=== PATIENT | female | born 1975 | race Caucasian/White ===

== ENCOUNTER 2016-09-09 08:45 | Emergency (ER) | payer OTHER ==
--- NOTE | 2016-09-09 10:13 | ED CLINICAL REPORT ---
Clinical Report - Physicians/Mid Levels [facility] [address] [place] [address] 09/09/2016 8:46 Patient: NGUYEN BOOGIE Time Seen: 09:59 Apr 2016. Arrived- By private vehicle. Historian- patient. CPT: ER phys charges level 3 (#[id number]). HISTORY OF PRESENT ILLNESS Chief Complaint: SKIN RASH. This started today Did own tattoo last night and now reacting. and is still present. It is described as itchy and burning. It has been located on the left forearm. A cause has been identified. (tattoo ink). Similar symptoms previously: None. Recent medical care: Not recently seen/assessed. REVIEW OF SYSTEMS No fever, chills, sore throat, cough or difficulty breathing. No hoarseness, lump in throat, enlarged lymph nodes, chest pain or abdominal pain. No nausea, diarrhea, joint pain or vomiting. All systems otherwise negative, except as recorded above. PAST HISTORY Atypical Chest Pain. Sprain. Dental Pain. Immunizations. Cervical stenosis. Anxiety Reaction. - ADDITIONAL SURGERIES: . Tonsillectomy. Tubal Ligation. Medications: ALPRAZolam Oral 0.25 mg, as needed. Baclofen. Ibuprofen Oral. Allergies: Ceclor. SOCIAL HISTORY Light tobacco smoker (cigarette)- less than 1/2 a pack per day. No alcohol use or drug use. ADDITIONAL NOTES The nursing notes have been reviewed. PHYSICAL EXAM Vital Signs: 09/09/2016 09:02 BP: 112/92. HR: 94. RR: 20. O2 saturation: 100%. Temp: 99 F. Pain level now: 8/10. Appearance: Alert. No acute distress. Anxious. Eyes: Pupils equal, round and reactive to light. Conjunctivae and eyelids normal. ENT: Ears normal. Nose normal. Pharynx normal. Neck: Neck supple. CVS: Normal heart rate and rhythm. Heart sounds normal. Respiratory: No respiratory distress. Breath sounds normal. Chest nontender. No wheezes. Skin: Skin warm. (erythema under tattos on left forearm and right arm consistent with allergic reaction to the ink.). Extremities: Extremities nontender. Neuro: Oriented X 3. No motor deficit. No sensory deficit. PROGRESS AND PROCEDURES Course of Care: Prednisone 40 mg po pepcic 40 mg po. Patient/family counseled. Disposition: Discharged. Condition: stable. CLINICAL IMPRESSION Allergic reaction to tattoo ink left forearm and right upper arm. INSTRUCTIONS Warnings: Further evaluation is necessary. GENERAL WARNINGS: Return or contact your physician immediately if your condition worsens or changes unexpectedly, if not improving as expected, or if other problems arise. Prescription Medications: Hydrocortisone 2.5% ointment: apply to affected areas four times daily as needed for rash, until symptoms improve. Dispense thirty (30) grams. No refills. Prednisone 20 mg: take 3 orally every day for 5 days. Dispense fifteen (15). No refills. OTC Medications: Benadryl Allergy 25 mg (available over the counter): take 1 orally every 6 hours as needed for itching or allergies. Dispense twenty (20). No refill. Substitution is permissible. Famotidine 10 mg (available over the counter): take 1 orally at bedtime for 10 days. Dispense ten (10). No refills. Follow-up: Follow up with your doctor in two days if not better. Understanding of the discharge instructions verbalized by patient. (Electronically signed by Brant Mtz MD 09/12/2016 20:46)
--- NOTE | 2016-09-09 10:13 | ED NURSING NOTES ---
Clinical Report - Nurses [facility] [place] [address] 09/09/2016 8:46 Patient: NGUYEN BOOGIE TRIAGE Triage time 09:00. Acuity: LEVEL 3. Chief Complaint: POSSIBLE ALLERGIC REACTION and SWELLING . Pt did self tatoos last night. Today she has redness, swelling, bruising at the sites on both arms. C/o burning pain in the reaction areas. 09:06 09/09/16. KUSH COMA SCORE: Kush Coma Scale: 15- eyes open spontaneously (4); best verbal response- oriented x 4 (5); best motor response- obeys commands (6). --09: Harry Will R.N. 09:02 09/09/16. BP: 112/92. HR: 94. RR: 20. O2 saturation: 100% on room air. Temp: 99 F (oral). Pain level now: 810. Additional comments: by pulse ox. --09:07 Harry Will R.N. Weight: 49.4 kg stated. Height/Length: 61 inches Per Patient. BMI: 20.6. --09:04 Harry Will R.N. Medications ALPRAZolam Oral 0.25 mg, as needed. Baclofen. Ibuprofen Oral. --09:04 Harry Will R.N. Allergies Ceclor. --09:04 Harry Will R.N. History Arrived by private vehicle. Historian: patient. Accompanied by family. This started today. SOCIAL HX: Light tobacco smoker (cigarette)- less than 1/2 a pack per day. No alcohol use or drug use. ABUSE ASSESSMENT: No report of abuse. --09:07 Harry Will R.N. PROBLEMS: Atypical Chest Pain. Sprain. Dental Pain. Immunizations. Cervical stenosis. Anxiety Reaction. --09:04 Harry Will R.N. ADDITIONAL SURGERIES: . Tonsillectomy. Tubal Ligation. --09:04 Harry Will R.N. Interventions ID band on patient. To treatment room. --09:07 Harry Will R.N. PHYSICAL ASSESSMENT 09:09 09/09/16. Ambulatory to room. GENERAL / NEURO / PSYCH: Alert. Appears in pain. Oriented X 4. HEENT: Pupils equal, round and reactive to light. Mucous membranes are pink. RESPIRATORY: Respirations not labored. Breath sounds within normal limits. CVS: Capillary refill less than 2 seconds. Pulses within normal limits. GI / : Abdomen nontender. SKIN: Skin is intact, warm and dry. Skin rash present. Swelling present. Erythema present. ( burning pain at the tattoo sites). --09:13 Harry Will R.N. NURSING PROGRESS NOTES 09:13 09/09/16. Pulse oximeter placed on patient. Head of bed elevated. Reassurance given. Two patient identifiers checked. Call light placed in reach. Bed placed in lowest position. Brakes of bed on. Patient ready for evaluation- chart flagged. --09:13 Harry Will R.N. 10:22 09/09/2016 Prednisone PO 60 mg given. Allergies verified and confirmed 5 rights. --10:22 Taylor Vargas R.N. 10:22 09/09/2016 Famotidine PO 40 mg given. Allergies verified and confirmed 5 rights. --10:22 Taylor Vargas R.N. DISPOSITION / DISCHARGE Departure time: 10:23. Condition at departure: unchanged and stable. No learning barriers present. Discharge instructions provided and reviewed with the patient. Patient verbalized understanding. Written instructions provided in Hungarian. The patient was discharged home and accompanied by family. She left the Emergency Department ambulatory and via private vehicle. Patient driving. --10:23 Taylor Vargas R.N. 10:22 09/09/16. BP: 109/82. HR: 83. RR: 18. O2 saturation: 100%. Pain level now 0/10. --10:23 Taylor Vargas R.N. Locked/Released at 09/09/2016 15:48 by Harry Will R.N.
--- NOTE | 2016-09-09 10:13 | ED ORDER SUMMARY ---
..... Patient: NGUYEN BOOGIE OrderSheet [facility] VisitID: [id number] [place] [address] 40y, F Registration Date/Time: 09/09/2016 ORDER SHEET Weight: 49.4 kg (stated) Allergies: Ceclor GENERAL ORDERS: MEDICATION ORDERS: Prednisone PO 60 mg (NOW) (10:12 09/09/2016 Amarjit GARCÍA) (10:22 DMaziarka R.N.) Famotidine PO 40 mg (NOW) (10:12 09/09/2016 Amarjit GARCÍA) (10:22 DMaziarka R.N.) IV FLUIDS: ORDER SHEET NOTES: [Electronically signed by Harry Will R.N. (15:48 09/09/2016)] [Electronically signed by Brant Mtz MD (20:46 09/12/2016)] [Electronically locked/signed by Harry Will R.N. (15:48 09/09/2016)]
--- NOTE | 2016-09-09 10:13 | ED CLINICAL REPORT ---
Clinical Report - Physicians/Mid Levels [facility] [address] [place] [address] 09/09/2016 8:46 Patient: NGUYEN BOOGIE Time Seen: 09:59 Apr 2016. Arrived- By private vehicle. Historian- patient. CPT: ER phys charges level 3 (#[id number]). HISTORY OF PRESENT ILLNESS Chief Complaint: SKIN RASH. This started today Did own tattoo last night and now reacting. and is still present. It is described as itchy and burning. It has been located on the left forearm. A cause has been identified. (tattoo ink). Similar symptoms previously: None. Recent medical care: Not recently seen/assessed. REVIEW OF SYSTEMS No fever, chills, sore throat, cough or difficulty breathing. No hoarseness, lump in throat, enlarged lymph nodes, chest pain or abdominal pain. No nausea, diarrhea, joint pain or vomiting. All systems otherwise negative, except as recorded above. PAST HISTORY Atypical Chest Pain. Sprain. Dental Pain. Immunizations. Cervical stenosis. Anxiety Reaction. - ADDITIONAL SURGERIES: . Tonsillectomy. Tubal Ligation. Medications: ALPRAZolam Oral 0.25 mg, as needed. Baclofen. Ibuprofen Oral. Allergies: Ceclor. SOCIAL HISTORY Light tobacco smoker (cigarette)- less than 1/2 a pack per day. No alcohol use or drug use. ADDITIONAL NOTES The nursing notes have been reviewed. PHYSICAL EXAM Vital Signs: 09/09/2016 09:02 BP: 112/92. HR: 94. RR: 20. O2 saturation: 100%. Temp: 99 F. Pain level now: 8/10. Appearance: Alert. No acute distress. Anxious. Eyes: Pupils equal, round and reactive to light. Conjunctivae and eyelids normal. ENT: Ears normal. Nose normal. Pharynx normal. Neck: Neck supple. CVS: Normal heart rate and rhythm. Heart sounds normal. Respiratory: No respiratory distress. Breath sounds normal. Chest nontender. No wheezes. Skin: Skin warm. (erythema under tattos on left forearm and right arm consistent with allergic reaction to the ink.). Extremities: Extremities nontender. Neuro: Oriented X 3. No motor deficit. No sensory deficit. PROGRESS AND PROCEDURES Course of Care: Prednisone 40 mg po pepcic 40 mg po. Patient/family counseled. Disposition: Discharged. Condition: stable. CLINICAL IMPRESSION Allergic reaction to tattoo ink left forearm and right upper arm. INSTRUCTIONS Warnings: Further evaluation is necessary. GENERAL WARNINGS: Return or contact your physician immediately if your condition worsens or changes unexpectedly, if not improving as expected, or if other problems arise. Prescription Medications: Hydrocortisone 2.5% ointment: apply to affected areas four times daily as needed for rash, until symptoms improve. Dispense thirty (30) grams. No refills. Prednisone 20 mg: take 3 orally every day for 5 days. Dispense fifteen (15). No refills. OTC Medications: Benadryl Allergy 25 mg (available over the counter): take 1 orally every 6 hours as needed for itching or allergies. Dispense twenty (20). No refill. Substitution is permissible. Famotidine 10 mg (available over the counter): take 1 orally at bedtime for 10 days. Dispense ten (10). No refills. Follow-up: Follow up with your doctor in two days if not better. Understanding of the discharge instructions verbalized by patient. (Electronically signed by Brant Mtz MD 09/12/2016 20:46)
--- NOTE | 2016-09-09 10:13 | ED ORDER SUMMARY ---
..... Patient: NGUYEN BOOGIE OrderSheet [facility] VisitID: [id number] [place] [address] 40y, F Registration Date/Time: 09/09/2016 ORDER SHEET Weight: 49.4 kg (stated) Allergies: Ceclor GENERAL ORDERS: MEDICATION ORDERS: Prednisone PO 60 mg (NOW) (10:12 09/09/2016 Amarjit GARCÍA) (10:22 DMaziarka R.N.) Famotidine PO 40 mg (NOW) (10:12 09/09/2016 Amarjit GARCÍA) (10:22 DMaziarka R.N.) IV FLUIDS: ORDER SHEET NOTES: [Electronically signed by Harry Will R.N. (15:48 09/09/2016)] [Electronically signed by Brant Mtz MD (20:46 09/12/2016)] [Electronically locked/signed by Harry Will R.N. (15:48 09/09/2016)]
--- NOTE | 2016-09-12 20:46 | ED MAR SUMMARY ---
..... Medication Administration Record [facility] [address] [place] [address] Patient: NGUYEN BOOGIE Visit ID: [id number] 40y, F Weight: 49.4 kg Height/Length: 61 in BMI: 20.6 ALLERGIES: Ceclor Given 10:09/09/2016 Taylor Vargas RCesarNCesar Medication Administered: PREDNISONE [PO], Dose: 60 mg PO. Medication Ordered: Prednisone PO 60 mg (NOW). Given 10:09/09/2016 Taylor Vargas, R.N. Medication Administered: FAMOTIDINE [PO], Dose: 40 mg PO. Medication Ordered: Famotidine PO 40 mg (NOW).
--- NOTE | 2016-09-12 20:46 | ED DISCHARGE INSTRUCTIONS ---
Patient: NGUYEN BOOGIE General Instructions [facility] VisitID: [id number] [place] [address] 40y, F Registration Date/Time: 09/09/2016 Allergic reaction to tattoo ink left forearm and right upper arm. INSTRUCTIONS Warnings: Further evaluation is necessary. GENERAL WARNINGS: Return or contact your physician immediately if your condition worsens or changes unexpectedly, if not improving as expected, or if other problems arise. Prescription Medications: Hydrocortisone 2.5% ointment: apply to affected areas four times daily as needed for rash, until symptoms improve. Dispense thirty (30) grams. No refills. Prednisone 20 mg: take 3 orally every day for 5 days. Dispense fifteen (15). No refills. OTC Medications: Benadryl Allergy 25 mg (available over the counter): take 1 orally every 6 hours as needed for itching or allergies. Dispense twenty (20). No refill. Substitution is permissible. Famotidine 10 mg (available over the counter): take 1 orally at bedtime for 10 days. Dispense ten (10). No refills. Follow-up: Follow up with your doctor in two days if not better. Understanding of the discharge instructions verbalized by patient. ADDITIONAL INFORMATION Diphenhydramine Tannate Chewable tablet What is this medicine? DIPHENHYDRAMINE (dye vernon bhardwaj) is an antihistamine. It is used to treat the symptoms of an allergic reaction. How should I use this medicine? Take this medicine by mouth. Chew it completely before swallowing. Follow the directions on the prescription label. Take your doses at regular intervals. Do not take your medicine more often than directed. Talk to your raveler regarding the use of this medicine in children. While this drug may be prescribed for children as young as 6 years old for selected conditions, precautions do apply. Patients over 65 years old may have a stronger reaction and need a smaller dose. What side effects may I notice from receiving this medicine? Side effects that you should report to your doctor or health home health care respiratory therapist as soon as possible: allergic reactions like skin rash, itching or hives, swelling of the face, lips, or tongue changes in vision confused, agitated, nervous irregular or fast heartbeat tremor trouble passing urine unusual bleeding or bruising unusually weak or tired Side effects that usually do not require medical attention (report to your doctor or health home health care respiratory therapist if they continue or are bothersome): constipation, diarrhea drowsy headache loss of appetite stomach upset, vomiting thick mucous What may interact with this medicine? Do not take this medicine with any of the following medications: MAOIs like Carbex, Eldepryl, Marplan, Nardil, and Parnate This medicine may also interact with the following medications: alcohol barbiturates, like phenobarbital medicines for bladder spasm like oxybutynin, tolterodine medicines for blood pressure medicines for depression, anxiety, or psychotic disturbances medicines for movement abnormalities or Parkinson's disease medicines for sleep other medicines for cold, cough or allergy some medicines for the stomach like chlordiazepoxide, dicyclomine What if I miss a dose? If you miss a dose, take it as soon as you can. If it is almost time for your next dose, take only that dose. Do not take double or extra doses. Where should I keep my medicine? Keep out of the reach of children. Store at room temperature between 15 and 30 degrees C (59 and 86 degrees F). Keep container closed tightly. Throw away any unused medicine after the expiration date. What should I tell my health care provider before I take this medicine? They need to know if you have any of these conditions: glaucoma high blood pressure heart disease liver disease lung or breathing disease, like asthma pain or difficulty passing urine phenylketonuria prostate trouble ulcers or other stomach problems an unusual or allergic reaction to diphenhydramine, sulfites, other medicines foods, dyes, or preservatives or trying to get breast-feeding What should I watch for while using this medicine? Visit your doctor or health home health care respiratory therapist for regular check ups. Tell your doctor or healthcare professional if your symptoms do not start to get better or if they get worse. Your mouth may get dry. Chewing sugarless gum or sucking hard candy, and drinking plenty of water may help. Contact your doctor if the problem does not go away or is severe. This medicine may cause dry eyes and blurred vision. If you wear contact lenses you may feel some discomfort. Lubricating drops may help. See your eye doctor if the problem does not go away or is severe. You may get drowsy or dizzy. Do not drive, use machinery, or do anything that needs mental alertness until you know how this medicine affects you. Do not stand or sit up quickly, especially if you are an older patient. This reduces the risk of dizzy or fainting spells. Alcohol may interfere with the effect of this medicine. Avoid alcoholic drinks. Famotidine Oral tablet What is this medicine? FAMOTIDINE (fa CHUCKY antony) is a type of antihistamine that blocks the release of stomach acid. It is used to treat stomach or intestinal ulcers. It can also relieve heartburn from acid reflux. How should I use this medicine? Take this medicine by mouth with a glass of water. Follow the directions on the prescription label. If you only take this medicine once a day, take it at bedtime. Take your doses at regular intervals. Do not take your medicine more often than directed. Talk to your raveler regarding the use of this medicine in children. Special care may be needed. What side effects may I notice from receiving this medicine? Side effects that you should report to your doctor or health home health care respiratory therapist as soon as possible: agitation, nervousness confusion hallucinations skin rash, itching Side effects that usually do not require medical attention (report to your doctor or health home health care respiratory therapist if they continue or are bothersome): constipation diarrhea dizziness headache What may interact with this medicine? delavirdine itraconazole ketoconazole What if I miss a dose? If you miss a dose, take it as soon as you can. If it is almost time for your next dose, take only that dose. Do not take double or extra doses. Where should I keep my medicine? Keep out of the reach of children. Store at room temperature between 15 and 30 degrees C (59 and 86 degrees F). Do not freeze. Throw away any unused medicine after the expiration date. What should I tell my health care provider before I take this medicine? They need to know if you have any of these conditions: kidney or liver disease trouble swallowing an unusual or allergic reaction to famotidine, other medicines, foods, dyes, or preservatives or trying to get breast-feeding What should I watch for while using this medicine? Tell your doctor or health home health care respiratory therapist if your condition does not start to get better or if it gets worse. Finish the full course of tablets prescribed, even if you feel better. Do not take with aspirin, ibuprofen or other antiinflammatory medicines. These can make your condition worse. Do not smoke cigarettes or drink alcohol. These cause irritation in your stomach and can increase the time it will take for ulcers to heal. If you get black, tarry stools or vomit up what looks like coffee grounds, call your doctor or health home health care respiratory therapist at once. You may have a bleeding ulcer. You have been given the following additional information: Diphenhydramine Tannate Chewable tablet Famotidine Oral tablet (Electronically signed by Brant Mtz MD 09/12/2016 20:46)
--- NOTE | 2016-09-12 20:46 | ED MED RECONCILIATION SUMMARY ---
Patient: NGUYEN BOOGIE Medication Reconciliation Report [facility] VisitID: [id number] [place] [address] 40y, F Registration Date/Time: 09/09/2016 Weight: 49.4 kg Height/Length: 61 in. BMI: 20.6 ALLERGIES: Ceclor The patient's Home Medications are listed below: THE FOLLOWING MEDICATIONS NEED TO BE RECONCILED: ALPRAZolam Oral 0.25 mg Baclofen Ibuprofen Oral The source(s) of the original Home Medication information: Not obtained. The following Medications were given to the patient in the Emergency Department: Prednisone [PO] PO 60 mg, administered: 09/09/2016 10:22:00 AM Famotidine [PO] PO 40 mg, administered: 09/09/2016 10:22:00 AM The following Medications were prescribed to the patient: Benadryl Allergy 25 mg (available over the counter): take 1 orally every 6 hours as needed for itching or allergies. Dispense twenty (20). No refill. Substitution is permissible. -- Brant Mtz MD Hydrocortisone 2.5% ointment: apply to affected areas four times daily as needed for rash, until symptoms improve. Dispense thirty (30) grams. No refills. -- Brant Mtz MD Prednisone 20 mg: take 3 orally every day for 5 days. Dispense fifteen (15). No refills. -- Brant Mtz MD Famotidine 10 mg (available over the counter): take 1 orally at bedtime for 10 days. Dispense ten (10). No refills. -- Brant Mtz MD
--- NOTE | 2016-09-12 20:46 | ED MED RECONCILIATION SUMMARY ---
Patient: NGUYEN BOOGIE Medication Reconciliation Report [facility] VisitID: [id number] [place] [address] 40y, F Registration Date/Time: 09/09/2016 Weight: 49.4 kg Height/Length: 61 in. BMI: 20.6 ALLERGIES: Ceclor The patient's Home Medications are listed below: THE FOLLOWING MEDICATIONS NEED TO BE RECONCILED: ALPRAZolam Oral 0.25 mg Baclofen Ibuprofen Oral The source(s) of the original Home Medication information: Not obtained. The following Medications were given to the patient in the Emergency Department: Prednisone [PO] PO 60 mg, administered: 09/09/2016 10:22:00 AM Famotidine [PO] PO 40 mg, administered: 09/09/2016 10:22:00 AM The following Medications were prescribed to the patient: Benadryl Allergy 25 mg (available over the counter): take 1 orally every 6 hours as needed for itching or allergies. Dispense twenty (20). No refill. Substitution is permissible. -- Brant Mtz MD Hydrocortisone 2.5% ointment: apply to affected areas four times daily as needed for rash, until symptoms improve. Dispense thirty (30) grams. No refills. -- Brant Mtz MD Prednisone 20 mg: take 3 orally every day for 5 days. Dispense fifteen (15). No refills. -- Brant Mtz MD Famotidine 10 mg (available over the counter): take 1 orally at bedtime for 10 days. Dispense ten (10). No refills. -- Brant Mtz MD
--- NOTE | 2016-09-12 20:46 | ED MAR SUMMARY ---
..... Medication Administration Record [facility] [address] [place] [address] Patient: NGUYEN BOOGIE Visit ID: [id number] 40y, F Weight: 49.4 kg Height/Length: 61 in BMI: 20.6 ALLERGIES: Ceclor Given 10:09/09/2016 Taylor Vargas RCesarNCesar Medication Administered: PREDNISONE [PO], Dose: 60 mg PO. Medication Ordered: Prednisone PO 60 mg (NOW). Given 10:09/09/2016 Taylor Vargas, R.N. Medication Administered: FAMOTIDINE [PO], Dose: 40 mg PO. Medication Ordered: Famotidine PO 40 mg (NOW).
--- NOTE | 2016-09-12 20:46 | ED DISCHARGE INSTRUCTIONS ---
Patient: NGUYEN BOOGIE General Instructions [facility] VisitID: [id number] [place] [address] 40y, F Registration Date/Time: 09/09/2016 Allergic reaction to tattoo ink left forearm and right upper arm. INSTRUCTIONS Warnings: Further evaluation is necessary. GENERAL WARNINGS: Return or contact your physician immediately if your condition worsens or changes unexpectedly, if not improving as expected, or if other problems arise. Prescription Medications: Hydrocortisone 2.5% ointment: apply to affected areas four times daily as needed for rash, until symptoms improve. Dispense thirty (30) grams. No refills. Prednisone 20 mg: take 3 orally every day for 5 days. Dispense fifteen (15). No refills. OTC Medications: Benadryl Allergy 25 mg (available over the counter): take 1 orally every 6 hours as needed for itching or allergies. Dispense twenty (20). No refill. Substitution is permissible. Famotidine 10 mg (available over the counter): take 1 orally at bedtime for 10 days. Dispense ten (10). No refills. Follow-up: Follow up with your doctor in two days if not better. Understanding of the discharge instructions verbalized by patient. ADDITIONAL INFORMATION Diphenhydramine Tannate Chewable tablet What is this medicine? DIPHENHYDRAMINE (dye vernon bhardwaj) is an antihistamine. It is used to treat the symptoms of an allergic reaction. How should I use this medicine? Take this medicine by mouth. Chew it completely before swallowing. Follow the directions on the prescription label. Take your doses at regular intervals. Do not take your medicine more often than directed. Talk to your hydroelectric plant electrical engineer regarding the use of this medicine in children. While this drug may be prescribed for children as young as 6 years old for selected conditions, precautions do apply. Patients over 65 years old may have a stronger reaction and need a smaller dose. What side effects may I notice from receiving this medicine? Side effects that you should report to your doctor or health managed care analyst as soon as possible: allergic reactions like skin rash, itching or hives, swelling of the face, lips, or tongue changes in vision confused, agitated, nervous irregular or fast heartbeat tremor trouble passing urine unusual bleeding or bruising unusually weak or tired Side effects that usually do not require medical attention (report to your doctor or health managed care analyst if they continue or are bothersome): constipation, diarrhea drowsy headache loss of appetite stomach upset, vomiting thick mucous What may interact with this medicine? Do not take this medicine with any of the following medications: MAOIs like Carbex, Eldepryl, Marplan, Nardil, and Parnate This medicine may also interact with the following medications: alcohol barbiturates, like phenobarbital medicines for bladder spasm like oxybutynin, tolterodine medicines for blood pressure medicines for depression, anxiety, or psychotic disturbances medicines for movement abnormalities or Parkinson's disease medicines for sleep other medicines for cold, cough or allergy some medicines for the stomach like chlordiazepoxide, dicyclomine What if I miss a dose? If you miss a dose, take it as soon as you can. If it is almost time for your next dose, take only that dose. Do not take double or extra doses. Where should I keep my medicine? Keep out of the reach of children. Store at room temperature between 15 and 30 degrees C (59 and 86 degrees F). Keep container closed tightly. Throw away any unused medicine after the expiration date. What should I tell my health care provider before I take this medicine? They need to know if you have any of these conditions: glaucoma high blood pressure heart disease liver disease lung or breathing disease, like asthma pain or difficulty passing urine phenylketonuria prostate trouble ulcers or other stomach problems an unusual or allergic reaction to diphenhydramine, sulfites, other medicines foods, dyes, or preservatives or trying to get breast-feeding What should I watch for while using this medicine? Visit your doctor or health managed care analyst for regular check ups. Tell your doctor or healthcare professional if your symptoms do not start to get better or if they get worse. Your mouth may get dry. Chewing sugarless gum or sucking hard candy, and drinking plenty of water may help. Contact your doctor if the problem does not go away or is severe. This medicine may cause dry eyes and blurred vision. If you wear contact lenses you may feel some discomfort. Lubricating drops may help. See your eye doctor if the problem does not go away or is severe. You may get drowsy or dizzy. Do not drive, use machinery, or do anything that needs mental alertness until you know how this medicine affects you. Do not stand or sit up quickly, especially if you are an older patient. This reduces the risk of dizzy or fainting spells. Alcohol may interfere with the effect of this medicine. Avoid alcoholic drinks. Famotidine Oral tablet What is this medicine? FAMOTIDINE (fa CHUCKY antony) is a type of antihistamine that blocks the release of stomach acid. It is used to treat stomach or intestinal ulcers. It can also relieve heartburn from acid reflux. How should I use this medicine? Take this medicine by mouth with a glass of water. Follow the directions on the prescription label. If you only take this medicine once a day, take it at bedtime. Take your doses at regular intervals. Do not take your medicine more often than directed. Talk to your hydroelectric plant electrical engineer regarding the use of this medicine in children. Special care may be needed. What side effects may I notice from receiving this medicine? Side effects that you should report to your doctor or health managed care analyst as soon as possible: agitation, nervousness confusion hallucinations skin rash, itching Side effects that usually do not require medical attention (report to your doctor or health managed care analyst if they continue or are bothersome): constipation diarrhea dizziness headache What may interact with this medicine? delavirdine itraconazole ketoconazole What if I miss a dose? If you miss a dose, take it as soon as you can. If it is almost time for your next dose, take only that dose. Do not take double or extra doses. Where should I keep my medicine? Keep out of the reach of children. Store at room temperature between 15 and 30 degrees C (59 and 86 degrees F). Do not freeze. Throw away any unused medicine after the expiration date. What should I tell my health care provider before I take this medicine? They need to know if you have any of these conditions: kidney or liver disease trouble swallowing an unusual or allergic reaction to famotidine, other medicines, foods, dyes, or preservatives or trying to get breast-feeding What should I watch for while using this medicine? Tell your doctor or health managed care analyst if your condition does not start to get better or if it gets worse. Finish the full course of tablets prescribed, even if you feel better. Do not take with aspirin, ibuprofen or other antiinflammatory medicines. These can make your condition worse. Do not smoke cigarettes or drink alcohol. These cause irritation in your stomach and can increase the time it will take for ulcers to heal. If you get black, tarry stools or vomit up what looks like coffee grounds, call your doctor or health managed care analyst at once. You may have a bleeding ulcer. You have been given the following additional information: Diphenhydramine Tannate Chewable tablet Famotidine Oral tablet (Electronically signed by Brant Mtz MD 09/12/2016 20:46)
== END 2016-09-09 10:22 | disposition home or self-care (01) ==
LOC: ED SRH 08:45
DX: T78.49XA Other allergy, initial encounter (principal); X58.XXXA Exposure to other specified factors, initial encounter; Z91.048 Other nonmedicinal substance allergy status; Y93.89 Activity, other specified; Y99.9 Unspecified external cause status; Y92.9 Unspecified place or not applicable; Z79.52 Long term (current) use of systemic steroids; Z79.899 Other long term (current) drug therapy; Z88.8 Allergy status to other drugs, medicaments and biological substances; Z72.0 Tobacco use